=== PATIENT | female | born 1975 | race Caucasian/White ===

== ENCOUNTER → 2021-04-09 | Outpatient (CLI) | payer OTHER ==
[~2021-04-09] MED LIST: ATOR40TA59 PO; BIOT1TAB2 PO; CETI10TA74 PO; CYCL10TA19 PO; ESTR-113 PO; HYDR-2765 PO; LORA10TA65 PO; OMEP40CA7 PO; OXYC10TA PO; OXYM30SP25 NS; RIVA10TA PO; VENTOLIN HFA18 GM INH
[2021-04-09 10:11] LABS: ALBUMIN 3.5 g/dL (3.4-5.0); CALCIUM 8.9 mg/dL (8.5-10.1); CREATININE 0.7 mg/dL (0.6-1.0); GFR 91.3; POTASSIUM 4.7 mmol/L (3.5-5.1)
[2021-04-09 10:30] LABS: BASO # 0.1 x10^3/uL (0.0-0.2); BASO % 1 % (0-3); EOS # 0.1 x10^3/uL (0.0-0.7); EOS % 2 % (0-3); HEMATOCRIT 45.9 % (36.0-47.0); HEMOGLOBIN 15.4 g/dL (12.0-15.5); LYMPH # 3.3 x10^3/uL (1.0-4.8); LYMPH % 36 % (24-48); MEAN CORPUSCULAR HEMOGLOBIN 31 pg (25-35); MEAN CORPUSCULAR HGB CONC 34 g/dL (31-37); MEAN CORPUSCULAR VOLUME 91 fL (79-100); MONO # 0.6 x10^3/uL (0.0-1.1); MONO % 6 % (0-9); NEUT % 55 % (31-73); PLATELET COUNT 304 x10^3/uL (140-400); RED BLOOD COUNT 5.06 x10^6/uL (3.50-5.40); RED CELL DISTRIBUTION WIDTH 14.4 % (11.5-14.5)
[2021-04-09 11:00] LABS: PROTHROMBIN TIME PATIENT 13.8 SEC (11.7-14.0)
--- NOTE | 2021-04-09 12:10 | EKG ---
[facility] [address] [place] [address] Test Date: 2021-04-09 Test Time: 12:13:23 Pat Name: CORAZON LIMA Department: Room: Gender: F Drafter Commercial: ROSCOE : 1975 Requested By: TI SHAH Order Number: [id number] Reading MD: Marcos Zuniga Measurements Intervals [place] Rate: 67 P: 0 WV: 140 QRS: 50 QRSD: 80 T: 57 QT: 388 QTc: 413 Interpretive Statements SINUS RHYTHM NORMAL ECG RI6.01 No previous ECG available for comparison Electronically Signed On 04-11-2021 15:51:38 CDT by Marcos Zuniga
[2021-04-10 01:15] LABS: HEMOGLOBIN A1C 6.7 % (4.8-5.6)
== END ==
LOC: SURGPAT 12:42
PROVIDERS: ATTEND Orthopaedic Surgery
DX: Z01.818 Encounter for other preprocedural examination (principal); M25.561 Pain in right knee
CPT/HCPCS: 36415; 80048; 82040; 82306; 83036; 85025; 85610; 85651; 85730; 87641; 93005

== ENCOUNTER 2021-04-17 06:08 | Observation (INO) | payer OTHER ==
[2021-04-11 13:37] VITALS: BP_SYST 131
[2021-04-11 13:45] VITALS: BP_SYST 131
[~2021-04-17] VITALS: Ht 177.8 cm; Wt 95.4 kg
[2021-04-17] VITALS (9 sets, daily range): BP systolic 104–135; BP diastolic 60–88
[~2021-04-17 06:08] MED LIST changes: +ACETAMINOPHEN 325 MG TABLET. PO PRN; +CELECOXIB 100 MG CAPSULE. PO PRN; -CYCL10TA19 PO; +DEXAMETHASONE SOD PHOS 4 MG/ML VIAL IVP PRN; +EPINEPHRINE INT ART ONE; +IV RINGERS,LACTATED 1000ML 1,000 ML IV SCH; +NS INJ ONE; -OXYC10TA PO; -RIVA10TA PO; +ROPIVACAINE 0.5% INT ART ONE; +TOTAL VOLUME INT ART ONE; +TRANEXAMIC ACID INJ ONE; +oxyCODONE ER 10 MG TAB.ER.12H PO PRN
[2021-04-17] MEDS ORDERED: ONDANSETRON PF 4 MG/2 ML VIAL. ONE (06:09)
[2021-04-17] MEDS ORDERED: DEXAMETHASONE SOD PHOS 4 MG/ML VIAL ONE (06:09)
[2021-04-17] MEDS ORDERED: LIDOCAINE 2% PF 5 ML VIAL. ONE (06:10)
[2021-04-17] MEDS ORDERED: PROPOFOL 10 MG/ML (20ML) VIAL. IV ONE (06:10)
[2021-04-17] MEDS ORDERED: MIDAZOLAM HCL/PF 2 MG/2 ML VIAL. ONE ×2 (06:40→07:41)
[2021-04-17] MEDS ORDERED: fentaNYL PF VIAL 100 MCG/2 ML VIAL ONE (06:40)
[2021-04-17 07:17] LABS: BILIRUBIN,URINE NEGATIVE (NEG); CLARITY,URINE CLEAR; COLOR,URINE YELLOW; NITRITE,URINE NEGATIVE (NEG); PROTEIN,URINE NEGATIVE (NEG-TRACE); UROBILINOGEN,URINE 0.2 mg/dL (0.2 mg/dL)
--- NOTE | 2021-04-17 07:21 | RAD ---
EXAMINATION: Chest radiograph. VIEWS: The lateral views the chest COMPARISON: None INDICATION:45 years, Female, preop. FINDINGS: Normal cardiomediastinal silhouette. No focal consolidation. No pleural effusion or pneumothorax. No acute osseous process. IMPRESSION: No acute cardiopulmonary process. Electronically signed by: Yeyo Merritt DO (04/17/2021 7:18 AM) [facility]
[2021-04-17 07:26] LABS: ALBUMIN 3.4 g/dL (3.4-5.0); ALBUMIN/GLOBULIN RATIO 0.9 (1.0-1.7); CALCIUM 8.7 mg/dL (8.5-10.1); CREATININE 0.9 mg/dL (0.6-1.0); GFR 68.3; POTASSIUM 3.8 mmol/L (3.5-5.1); TOTAL BILIRUBIN 0.3 mg/dL (0.2-1.0)
[2021-04-17 07:29] LABS: BACTERIA,URINE 0 /HPF (0-FEW); RBC,URINE 0 /HPF (0-2); WBC,URINE 0 /HPF (0-4)
--- NOTE | 2021-04-17 07:33 | PDOC1 ---
Date of Service: DATE: 04/17/21 TIME: 07:31 H & P H&P HISTORY Patient seen evaluated today for right knee pain. 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 At this point she has no other options other than to consider patellofemoral replacement. She is here today for elective patellofemoral arthroplasty. Review of systems is negative with the exception of his complaints IN HISTORY Past medical, surgical, family, and social history were reviewed in the EMR as of April 17, 2021 Physical exam: GENERAL: NAD HEAD: NCAT CHEST: No audible wheeze CV: extremities withour cyanosis ABD: soft Neuro: Alert and Awake MSK: Well-healed anterior incision. No effusion. Full range of motion. Pain with patellofemoral compression. No gross instability. Neurocirculatory status grossly intact. Diagnosis/ Plan Right knee patellofemoral DJD Risk benefits possible complication alternative treatments and rationale behind surgery were discussed. She is in agreement and wishes to proceed. Proceed with right knee patellofemoral arthroplasty Justifications for Admission Other Justification TI SHAH DO Apr 17, 2021 7:33 am
[2021-04-17] MEDS ORDERED: DEXTROSE 50% 25 GM / 50ML DISP.SYRIN. IV PRN (07:45)
[2021-04-17] MEDS ORDERED: ZOLPIDEM 5 MG TABLET. PO PRN (07:45)
[2021-04-17] MEDS ORDERED: METOCLOPRAMIDE HCL 10 MG/2 ML VIAL. IVP PRN (07:45)
[2021-04-17] MEDS ORDERED: CALCIUM CARBONATE 500 MG TAB.CHEW PO PRN (07:45)
[2021-04-17] MEDS ORDERED: MORPHINE SULFATE 2 MG/ML INJ. IVP PRN ×2 (07:45→09:00)
[2021-04-17] MEDS ORDERED: IV NORMAL SALINE 1000ML BAG 1,000 ML IV SCH (07:45)
[2021-04-17] MEDS ORDERED: oxyCODONE IR 5 MG TABLET PO PRN (07:45)
[2021-04-17] MEDS ORDERED: PROCHLORPERAZINE 5 MG TABLET. PO PRN (07:45)
[2021-04-17] MEDS ORDERED: diphenhydrAMINE 50 MG/ML VIAL IVP PRN (07:45)
[2021-04-17] MEDS ORDERED: 0.9 % SODIUM CHLORIDE 10 ML DISP.SYRIN. IV PRN (07:45)
[2021-04-17] MEDS ORDERED: BUPIVACAINE MPF 0.25% 30 ML VIAL. ONE (07:51)
[2021-04-17] MEDS ORDERED: BUPIVACAINE-EPI 0.25%-1:200000 MPF 30 ML VIAL. ONE (07:53)
[2021-04-17] MEDS ORDERED: TRANEXAMIC ACID 1,000 MG/10 ML VIAL. ONE (08:14)
[2021-04-17] MEDS ORDERED: HYDROmorphone 2 MG/ML VIAL ONE ×2 (08:15→09:39)
[2021-04-17] MEDS ORDERED: 0.9 % SODIUM CHLORIDE 20 ML VIAL. IJ ONE (08:16)
[2021-04-17] MEDS ORDERED: fentaNYL PF VIAL 100 MCG/2 ML VIAL IVP PRN ×2 (09:00)
[2021-04-17] MEDS ORDERED: PROCHLORPERAZINE 10 MG/2 ML VIAL. IVP PRN (09:00)
[2021-04-17] MEDS ORDERED: ASPIRIN ENTERIC COATED 325 MG TABLET.DR. PO SCH (09:00)
[2021-04-17] MEDS: SENNOSIDES/DOCUSATE 8.6/50MG TABLET. PO SCH (09:00)
[2021-04-17] MEDS ORDERED: IV RINGERS,LACTATED 1000ML 1,000 ML IV SCH (09:00)
[2021-04-17] MEDS: MULTIVITAMIN with MINERAL TABLET. PO SCH (09:00)
[2021-04-17] MEDS ORDERED: PROCHLORPERAZINE 10 MG/2 ML VIAL. ONE (09:39)
[2021-04-17] MEDS ORDERED: ROPIVacaine 0.5% PF 20 ML VIAL. ONE (09:44)
[2021-04-17] MEDS ORDERED: LIDOCAINE 1% PF 2 ML VIAL. ONE (09:44)
[2021-04-17] MEDS: HYDROmorphone 2 MG/ML VIAL IVP PRN ×4 (10:25→13:25)
--- NOTE | 2021-04-17 11:06 | RAD ---
XR KNEE_RT 1-2 VIEWS History: Postop Comparison: None available. Technique: Portable AP and crosstable lateral views of the right knee. FINDINGS/ IMPRESSION: Post surgical changes from patellofemoral compartment arthroplasty. The femoral component appears wel l seated. Mild degenerative changes of the medial tibiofemoral compartment. Expected subcutaneous/int ra-articular air and fluid consistent with recent instrumentation. Alignment is anatomic. Electronically signed by: Adalberto Mckay MD (04/17/2021 11:04 AM) [id number]
[2021-04-17] MEDS: ONDANSETRON PF 4 MG/2 ML VIAL. IVP SCH ×2 (12:00→18:00)
[2021-04-17] MEDS: ONDANSETRON ODT 4 MG TAB.RAPDIS. PO SCH ×2 (12:00→18:39)
--- NOTE | 2021-04-17 12:17 | PDOC4 ---
OPERATIVE NOTE: DATE OF PROCEDURE: April 17, 2021 PROCEDURE: Right knee patellofemoral arthroplasty total knee arthroplasty PREOPERATIVE DIAGNOSIS: Right patellofemoral knee osteoarthritis POSTOPERATIVE DIAGNOSIS: Same SURGEON: Ti Woods DO [employer] SUPERVISOR: None ANESTHESIA: General with periarticular injection COMPLICATIONS: None EBL: <50cc SPECIMEN: None DISPOSITION: To PACU stable. GROSS FINDINGS: Degenerative arthritis predominantly patellofemoral IMPLANT SPECIFICATIONS: Brandt [employer] Nephew patellofemoral arthroplasty Extra small trochlea 32 mm patella Palacos cement with gent DESCRIPTION OF PROCEDURE: The patient was seen in the preoperative holding area. The Surgical site was marked. Consent was verified. Patient received preoperative antibiotics and was taken back to the operating room. Once in the operating room, the department of anesthesia administered anesthetic as noted above. Timeout was observed. Once adequately anesthetized, the tourniquet was placed on the operative thigh. Sterile prep and drape was performed of the operative extremity. An Esmarch was used to exsanguinate the limb, and the tourniquet was inflated. At this point, a 15 cm anterior midline incision was made. A mid vastus approach was made taking care not to disrupt the medial meniscus. Once adequate exposure was obtained of the patellofemoral articulation distal femoral tracker was placed as well as primary point. Hip center was obtained as well as robotic aided reconstruction of the trochlear groove. Using these reconstructions the bur was used to remove the appropriate amount of bone of the trochlea. Trial was put in place and fit well. For holes were drilled. At this point a temporary implant was put in place. The patella was everted and 8 mm was taken off of the articular side. It was sized at a 32 and a 32 mm trial was put in place. Knee was run through range of motion and found to be excellent. Knee was prepped for cement after copious irrigation and suctioned dry. The trochlear implant as well as the patellar button were cemented into place and held there with compression. Any excess cement was removed. After the cemented hardened range of motion was assessed. There was good patellar tracking and good full range of motion. Betadine lavage was performed copious irrigation was then run through the knee. Layered closure was performed. TXA was infiltrated through the repaired arthrotomy subcutaneous and subcuticular closure was performed followed by appl ication of Steri-Strips and a samantha dressing with Acticoat. The tourniquet was deflated, and hemostasis was obtained with pressure and electrocautery. The parapatellar arthrotomy was closed, follow layered soft tissue closure. A large bulky dressing was applied. Anesthesia was reversed, and the patient was transferred to postop in apparent stable condition. DISPOSITION: The patient will be discharged to the general medical floor once recovered in the PACU. Pt. will begin on physical therapy protocol, postoperative medical management, and DVT prophylaxis. PROGNOSIS: Good TI WOODS DO Apr 17, 2021 12:17 pm
--- NOTE | 2021-04-17 12:45 | NUR ---
RECEIVED FROM RECOVERY. SHE IS ALERT AND ORIENTED X4. SHE HAS GOOD MOTION, SENSATION, PULSES BILATERAL LOWER EXTREMITIES. HISTORY COMPLETED. SHE IS RATING HER PAIN 4-5 AT THIS TIME. DENIES NEED FOR PAIN MEDICATION. EATING LUNCH
[2021-04-17] MEDS: oxyCODONE IR 5 MG TABLET PO PRN ×2 (15:31→23:06)
[2021-04-17] MEDS: FERROUS SULFATE 325 MG TABLET. PO SCH (18:39)
[2021-04-17] MEDS ORDERED: FLU VACC QUAD 21-22 (6MOS+) PF 0.5 ML SYRINGE. VAX IM ONE (21:00)
[2021-04-18] MEDS: ONDANSETRON ODT 4 MG TAB.RAPDIS. PO SCH ×3 (01:10→06:36)
[2021-04-18] MEDS: oxyCODONE IR 5 MG TABLET PO PRN ×4 (03:23→15:49)
[2021-04-18 03:25] VITALS: BP 115/69
[2021-04-18] MEDS ORDERED: MAGNESIUM HYDROXIDE 2,400 MG/30 ML ORAL.SUSP. PO PRN (06:00)
[2021-04-18 06:31] VITALS: BP 104/71
[2021-04-18] MEDS: ONDANSETRON PF 4 MG/2 ML VIAL. IVP SCH ×2 (06:36)
[2021-04-18] MEDS: ACETAMINOPHEN 500 MG TABLET PO SCH ×2 (07:41→15:00)
[2021-04-18] MEDS: MULTIVITAMIN with MINERAL TABLET. PO SCH (07:41)
[2021-04-18] MEDS: SENNOSIDES/DOCUSATE 8.6/50MG TABLET. PO SCH (07:42)
[2021-04-18] MEDS: FERROUS SULFATE 325 MG TABLET. PO SCH (07:42)
--- NOTE | 2021-04-18 09:00 | NUR ---
Pt wanting to go home today. C/o unable to sleep last night. Discussed the plan of care for today. Verbalized understanding.
[2021-04-18] MEDS ORDERED: ONDANSETRON ODT 4 MG TAB.RAPDIS. PO PRN (12:00)
[2021-04-18] MEDS ORDERED: ONDANSETRON PF 4 MG/2 ML VIAL. IVP PRN (12:00)
--- NOTE | 2021-04-18 14:25 | NUR ---
Received orders to discharge with outpatient therapy that was arranged by Dr. Woods's office and prescriptions sent via electronic to pharmacy.
[2021-04-18] MEDS ORDERED: CYCLOBENZAPRINE 10 MG TABLET. PO ONE (15:15)
[2021-04-18] MEDS ORDERED: OXYC10TA PO (15:27)
[2021-04-18] MEDS ORDERED: RIVA10TA PO ×2 (15:29→18:30)
[2021-04-18] MEDS ORDERED: CYCL10TA19 PO (15:30)
[2021-04-18] MEDS ORDERED: BISACODYL 10 MG SUPP.RECT. PR PRN (16:00)
--- NOTE | 2021-04-18 16:30 | NUR ---
Discharged instructions and dressing supplies given. Answered questions and concerns. Verbalized understanding. Pt discharged home with outpatient for therapy. Pt escorted out by w/c.
[2021-04-18] MEDS ORDERED: RIVAROXABAN 10 MG TABLET. PO SCH (17:00)
== END 2021-04-18 16:30 | disposition home or self-care (01) ==
LOC: SURG 06:08 → EDUNIT# 07:30 → 4 SOUTHEST 07:39
PROVIDERS: ADMIT Orthopaedic Surgery; ATTEND Orthopaedic Surgery
DX: M17.11 Unilateral primary osteoarthritis, right knee (principal); F17.210 Nicotine dependence, cigarettes, uncomplicated; Z23 Encounter for immunization
CPT/HCPCS: 27438; 36415; 71046; 73560; 80053; 81001; 86850; 86900; 86901; 90471; 90686; 96365; 96366; 96376; 97116; 97150; 97161; 97165; 97530; 97535; 99406; A4213; A4930; A6223; A6253; A6258; A6402; A6450; C1713; C1776; G0378; G0379; J0171; J0690; J0780; J1100; J1170; J2250; J2405; J2704; J2795; J3010; J3490; A4223; A6454